=== PATIENT | female | born 1960 | race Caucasian/White ===

== ENCOUNTER 2017-09-27 13:17 | Emergency (ER) | payer BC ==
--- NOTE | 2017-09-27 14:05 | ER Document Report ---
ED Medical Screen (RME) - General Chief Complaint: Leg Swelling Stated Complaint: LEG SWELLING Time Seen by Provider: 09/27/17 13:50 Mode of Arrival: Ambulatory TRAVEL OUTSIDE OF THE [place] IN LAST 30 DAYS: No - HPI Notes: 09/27/17 14:03 57-year-old female presents to the emergency department with bilateral lower extremity swelling and pain for the last 3 days. Patient denies any trauma or injury. She went to urgent care today and her blood pressure was noted to be elevated. Patient does have a history of hypertension and is on lisinopril. She has been taking her medication as directed. Patient was referred to the emergency department for further evaluation workup. Patient denies a history of DVT or PE, history of trauma, history of surgery, history of malignancy, history of hormone use. I have greeted and performed a rapid initial assessment of this patient. A comprehensive ED assessment and evaluation of the patient, analysis of test results and completion of the medical decision making process will be conducted by additional ED providers. PHYSICAL EXAMINATION: GENERAL: Well-appearing, well-nourished and in no acute distress. HEAD: Atraumatic, normocephalic. EYES: Pupils equal round extraocular movements intact, conjunctiva are normal. ENT: Nares patent NECK: Normal range of motion LUNGS: No respiratory distress Musculoskeletal: Normal range of motion. Bilateral calf tenderness to palpation. 2+ dorsalis pedis and posterior tibialis pulses. NEUROLOGICAL: Normal speech, normal gait. PSYCH: Normal mood, normal affect. SKIN: Warm, Dry, normal turgor, no rashes or lesions noted. - Related Data Allergies/Adverse Reactions: ampicillin Allergy (Verified 09/27/17 13:57) Past Medical History - Social History Chew tobacco use (# tins/day): No Frequency of alcohol use: None Drug Abuse: None Renal/ Medical History: Denies: Hx Peritoneal Dialysis Musculoskeltal Medical History: Reports Hx Arthritis - osteo arthritis Past Surgical History: Reports: Hx Tubal Ligation Physical Exam - Vital signs Vitals: Temp Pulse Resp BP Pulse Ox 97.5 F 78 18 154/89 H 97 09/27/17 13:21 09/27/17 13:21 09/27/17 13:21 09/27/17 13:21 09/27/17 13:21 Course - Vital Signs Vital signs: Temp Pulse Resp BP Pulse Ox 97.5 F 78 18 154/89 H 97 09/27/17 13:21 09/27/17 13:21 09/27/17 13:21 09/27/17 13:21 09/27/17 13:21 Doctor's Discharge - Discharge Referrals: MEME IZAGUIRRE FNP [Primary Care Provider] - Follow up as needed
[2017-09-27 14:54] LABS: ABSOLUTE BASOPHILS # (AUTO) 0.1 10^3/uL (0.0-0.2); ABSOLUTE EOSINOPHILS # (AUTO) 0.2 10^3/uL (0.0-0.6); ABSOLUTE LYMPHOCYTES (AUTO) 1.5 10^3/uL (0.5-4.7); ABSOLUTE MONOCYTES (AUTO) 0.7 10^3/uL (0.1-1.4); ABSOLUTE NEUT (AUTO) 4.2 10^3/uL (1.7-8.2); EOSINOPHILS % (AUTO) 2.6 % (0-6); HEMATOCRIT 39.4 % (36.0-47.0); HEMOGLOBIN 13.3 g/dL (12.0-15.5); LYMPHOCYTES % (AUTO) 23.4 % (13-45); MEAN CORPUSCULAR HGB CONC 33.7 g/dL (32.0-36.0); MEAN CORPUSCULAR VOLUME 86 fl (80-97); MONOCYTES % (AUTO) 9.9 % (3-13); PLATELET COUNT 274 10^3/uL (150-450); RED BLOOD COUNT 4.57 10^6/uL (3.72-5.28); RED CELL DISTRIBUTION WIDTH 13.1 % (11.5-14.0); SEGMENTED NEUTROPHILS % (AUTO) 63.1 % (42-78); TOTAL CELLS COUNTED % (AUTO) 100 %; WHITE BLOOD COUNT 6.6 10^3/uL (4.0-10.5)
[2017-09-27 15:20] LABS: ALANINE AMINOTRANSFERASE 30 U/L (9-52); ALBUMIN 3.8 g/dL (3.5-5.0); ALKALINE PHOSPHATASE 62 U/L (38-126); ANION GAP 10 (5-19); ASPARTATE AMINO TRANSFERASE 23 U/L (14-36); BILIRUBIN,DIRECT 0.4 mg/dL (0.0-0.4); BILIRUBIN,TOTAL 0.6 mg/dL (0.2-1.3); BLOOD UREA NITROGEN 17 mg/dL (7-20); CALCIUM 9.5 mg/dL (8.4-10.2); CARBON DIOXIDE 29 mmol/L (22-30); CHLORIDE 106 mmol/L (98-107); GLUCOSE 83 mg/dL (75-110); POTASSIUM 4.2 mmol/L (3.6-5.0); SODIUM 145.4 mmol/L (137-145); TOTAL PROTEIN 6.9 g/dL (6.3-8.2)
[2017-09-27 16:51] VITALS: BP 139/99
--- NOTE | 2017-09-27 16:51 | ER Document Report ---
ED General - General Chief Complaint: Leg Swelling Stated Complaint: LEG SWELLING Time Seen by Provider: 09/27/17 13:50 Mode of Arrival: Ambulatory TRAVEL OUTSIDE OF THE [place] IN LAST 30 DAYS: No - HPI Patient complains to provider of: Leg swelling Notes: Patient coming in for bilateral lower extremity swelling. Patient states ongoing for the last 2 days. Denies any recent travel denies any history of DVT or PE. Patient does have a history of high blood pressure. Patient states that she is currently on the keto diet and is concerned her diet may be causing swelling of her legs. Patient states she has not tried any modalities to help the swelling at home no elevation patient states she did try lemon juice is that she was told by local pharmacist that limited use with the aid in peripheral swelling. Denies fever chills nausea vomiting diarrhea - Related Data Allergies/Adverse Reactions: ampicillin Allergy (Verified 09/27/17 13:57) Past Medical History - Social History Smoking Status: Never Smoker Chew tobacco use (# tins/day): No Frequency of alcohol use: None Drug Abuse: None Family History: Reviewed & Not Pertinent Patient has suicidal ideation: No Patient has homicidal ideation: No Renal/ Medical History: Denies: Hx Peritoneal Dialysis Musculoskeletal Medical History: Reports Hx Arthritis - osteo arthritis Past Surgical History: Reports: Hx Tubal Ligation Review of Systems - Review of Systems Constitutional: No symptoms reported EENT: No symptoms reported Cardiovascular: No symptoms reported Respiratory: No symptoms reported Gastrointestinal: No symptoms reported Genitourinary: No symptoms reported Female Genitourinary: No symptoms reported Musculoskeletal: Leg swelling Skin: No symptoms reported Hematologic/Lymphatic: No symptoms reported Neurological/Psychological: No symptoms reported -: Yes All other systems reviewed and negative Physical Exam - Vital signs Vitals: Temp Pulse Resp BP Pulse Ox 97.5 F 78 18 154/89 H 97 09/27/17 13:21 09/27/17 13:21 09/27/17 13:21 09/27/17 13:21 09/27/17 13:21 Interpretation: Normal - General General appearance: Appears well, Alert - HEENT Head: Normocephalic, Atraumatic Eyes: Normal Pupils: PERRL - Respiratory Respiratory status: No respiratory distress Chest status: Nontender Breath sounds: Normal Chest palpation: Normal - Cardiovascular Rhythm: Regular Heart sounds: Normal auscultation Murmur: No - Abdominal Inspection: Normal Distension: No distension Bowel sounds: Normal Tenderness: Nontender Organomegaly: No organomegaly - Back Back: Normal, Nontender - Extremities General upper extremity: Normal inspection, Nontender, Normal color, Normal ROM , Normal temperature General lower extremity: Normal inspection, Nontender, Edema - 12+ pitting edema , Normal color, Normal ROM, Normal temperature, Normal weight bearing. No: Aleksandr's sign - Neurological Neuro grossly intact: Yes Cognition: Normal Orientation: AAOx4 Iron Coma Scale Eye Opening: Spontaneous Leburn Coma Scale Verbal: Oriented Leburn Coma Scale Motor: Obeys Commands Leburn Coma Scale Total: 15 Speech: Normal Motor strength normal: LUE, RUE, LLE, RLE Sensory: Normal - Psychological Associated symptoms: Normal affect, Normal mood - Skin Skin Temperature: Warm Skin Moisture: Dry Skin Color: Normal Course - Re-evaluation Re-evalutation: 09/27/17 23:34 After studies not show any critical pathology. Ultrasound is negative for acute DVT. Recommend patient elevate her legs watch her salt intake. Patient states understanding will be discharged home. - Vital Signs Vital signs: Temp Pulse Resp BP Pulse Ox 97.6 F 68 16 139/99 H 98 09/27/17 16:49 09/27/17 16:49 09/27/17 16:49 09/27/17 16:49 09/27/17 16:49 - Laboratory Result Diagrams: 09/27/17 14:14 09/27/17 14:14 Laboratory results interpreted by me: 09/27/17 14:14 Sodium 145.4 H Discharge - Discharge Clinical Impression: Leg swelling Condition: Good Disposition: HOME, SELF-CARE Instructions: Edema, Peripheral ([facility]) Additional Instructions: Your laboratory studies and and Doppler today showed no signs of electrolyte abnormality renal failure no signs of acute DVT no clear etiology for your symptoms recommend following up with your primary care physician return to ER symptoms worsen. Referrals: MEME IZAGUIRRE FNP [Primary Care Provider] - Follow up as needed
--- NOTE | 2017-09-28 08:37 | XCELERA REPORT ---
[address] [address] Lower Extremity Venous Evaluation Name: DIONE GRIGGS Age: 57 yrs Gender: Female : 1960 Patient Status: Emergency Patient Location: ER Study Date: 09/27/2017 03:16 PM Procedure: Color flow and duplex imaging bilaterally of the veins of the lower extremities as well as the Common Femoral veins. Reason For Study: bilateral calf pain Ordering Physician: NAVA PAVON Performed By: Madeline Barrett Right Sided Venous Evaluation Normal vessel filling wall to wall, compression and augmentation as well as Colour flow down to the infrageniculate veins. Left Sided Venous Evaluation Normal vessel filling wall to wall, compression and augmentation as well as Colour flow down to the infrageniculate veins. Interpretation Summary No duplex evidence of DVT or obstruction in the bilateral lower extremities. : NAVA PAVON > Joseph Luu
== END 2017-09-27 16:51 | disposition home or self-care (01) ==
LOC: ER 13:17
DX: M79.89 Other specified soft tissue disorders (principal); I10 Essential (primary) hypertension; Z88.0 Allergy status to penicillin
CPT/HCPCS: 36415; 80053; 85025; 93970; 99284